=== PATIENT | male | born 1985 | race African-American/Black ===

== ENCOUNTER 2023-06-12 12:48 | Emergency (ER) | payer MEDICAID ==
[~2023-06-12] VITALS: Ht 167.6 cm; Wt 77.0 kg
[2023-06-12 12:53] VITALS: O2SAT 100
[2023-06-12] MEDS ORDERED: CEFTRIAXONE SODIUM 500 MG/VIAL IM NR (15:15)
[2023-06-12] MEDS ORDERED: LIDOCAINE HCL 1% 20ML VIAL (Pyxis) INJ INFIL ONE (15:15)
[2023-06-12] MEDS ORDERED: LIDOCAINE HCL 1% 10 MG/ML 10ML VIAL INJ NR (15:15)
[2023-06-12] MEDS ORDERED: CEFTRIAXONE SODIUM 500 MG/VIAL IM ONE (15:15)
[2023-06-12 16:11] LABS: CLARITY URINE CLEAR (CLEAR); COLOR URINE YELLOW (YELLOW); GLUCOSE URINE NEGATIVE (NEGATIVE); KETONES URINE NEGATIVE (NEGATIVE); LEUKOCYTE ESTERASE URINE NEGATIVE (NEGATIVE); NITRITE URINE NEGATIVE (NEGATIVE); OCCULT BLOOD URINE NEGATIVE (NEGATIVE); PH URINE 5.5 (4.5-8.0); PROTEIN URINE NEGATIVE (NEGATIVE); SPECIFIC GRAVITY URINE 1.018 (1.005-1.030)
[2023-06-12] MEDS ORDERED: DOXY100C5 MT (16:42)
[2023-06-12 17:34] VITALS: BP 131/85; PULSE 66; RESP 16; TEMP 98.9
== END 2023-06-12 17:34 | disposition home or self-care (01) ==
LOC: ER 12:48
DX: K62.89 Other specified diseases of anus and rectum (principal); Z98.890 Other specified postprocedural states
CPT/HCPCS: 87491; 87591; 81003; 96372; 99283; J0696; J3490; Z7610